=== PATIENT | female | born 1995 | race American Indian/Alaskan Native ===

== ENCOUNTER 2019-02-16 21:37 | Emergency (ER) | payer MEDICAID ==
[2019-02-16 21:53] VITALS: BP 121/86
--- NOTE | 2019-02-16 21:56 | Emergency Department Report ---
Blank Doc - Documentation Documentation: 23-year-old female that presents with female that presents with pelvic pain, n ausea and vomiting. Stated his about 12 weeks and had ultrasound in OB that was normal. Deneis any vaginal bleeding. This initial assessment/diagnostic orders/clinical plan/treatment(s) is/are subject to change based on patient's health status, clinical progression and re- assessment by fellow clinical providers in the ED. Further treatment and workup at subsequent clinical providers discretion. Patient/guardians urged not to elope from the ED as their condition may be serious if not clinically assessed and managed. Initial orders include: 1- Patient sent to [facility] for further evaluation and treatment 2- labs 3- UA
[2019-02-16 22:41] LABS: Basophils % (Auto) 0.7 % (0.0-1.8); Eosinophils # (Auto) 0.1 K/mm3 (0.0-0.4); Eosinophils % (Auto) 1.8 % (0.0-4.3); Hematocrit 37.4 % (30.3-42.9); Hemoglobin 11.9 gm/dl (10.1-14.3); Lymphocytes # (Auto) 2.3 K/mm3 (1.2-5.4); Lymphocytes % (Auto) 34.4 % (13.4-35.0); Mean Corpuscular HGB Conc 32 % (30-34); Mean Corpuscular Volume 74 fl (79-97); Monocytes # (Auto) 0.7 K/mm3 (0.0-0.8); Monocytes % (Auto) 11.1 % (0.0-7.3); Platelet Count 372 K/mm3 (140-440); Red Blood Count 5.09 M/mm3 (3.65-5.03); Red Cell Distribution Width 18.9 % (13.2-15.2)
[2019-02-16 22:46] LABS: BUN/Creatinine Ratio 10; Blood Urea Nitrogen 6 mg/dL (7-17); Calcium 8.8 mg/dL (8.4-10.2); Hemolysis Index 12
[2019-02-16 22:53] LABS: Amorphous Crystals,Urine 1+; Bilirubin,Urine NEG (Negative); Blood,Urine NEG (Negative); Color,Urine Yellow (Yellow); Mucus,Urine FEW /HPF
--- NOTE | 2019-02-16 23:35 | Ultrasound Report ---
ULTRASOUND OBSTETRIC Indication: pelvic pain Findings: There is a single, living intrauterine . [place]-rump length = 5.8 cm = 12 weeks, 2 day(s). heart rate is 160 beats per minute. The ovaries are normal. There is no free fluid. Impression: Single, living intrauterine with estimated sonographic age of 12 weeks, 2 day(s). Signer Name: Tj David MD Signed: 02/16/2019 11:31 PM Workstation Name: [id number]
[2019-02-17] MEDS ORDERED: ONDANSETRON 4 MG ODT TAB PO ONE (00:26)
[2019-02-17] MEDS ORDERED: ALUM-MAG HYDROXIDE-SIMETHICONE 200-200-20MG/5ML ORAL LIQD 30 ML PO ONE (00:26)
--- NOTE | 2019-02-17 01:20 | Emergency Department Report ---
ED Abdominal Pain HPI - General Chief Complaint: Abdominal Pain Stated Complaint: ABDOMINAL PAIN/HEADACHE Time Seen by Provider: 02/16/19 21:54 Source: patient Mode of arrival: Ambulatory Limitations: No Limitations - History of Present Illness Initial Comments: Patient is a 23-year-old -[place] female A0 who presents for normal cramping 1 week, there is no fevers no chills no vaginal bleeding,states am nausea without vomiting , pt does endorse urinary urgency and frequency. pt denies concern for STI , states she is not sexually active. Pt blood type is A pos. MD Complaint: abdominal pain Onset/Timin -: week(s) Location: LLQ, RLQ Radiation: LLQ, RLQ Migration to: no migration Severity: moderate Severity scale (0 -10): 3 Quality: cramping Consistency: intermittent Improves With: nothing Worsens With: nothing Associated Symptoms: nausea, dysuria. denies: vomiting, fever, chills, hematemesis, hematochezia, melena, hematuria, anorexia, syncope - Related Data LMP (females 10-50): Previous Rx's Medication Instructions Recorded Last Taken Type Ondansetron [Zofran Odt] 4 mg PO Q8HR PRN #10 tab.rapdis 01/13/19 Unknown Rx Acetaminophen [Acetaminophen TAB] 650 mg PO Q6HR PRN #30 tablet 02/17/19 Unknown Rx Nitrofurantoin [place]/M-Cryst 100 mg PO Q12HR 7 Days #14 capsule 02/17/19 Unknown Rx [Macrobid CAP] Ondansetron [Zofran Odt] 4 mg PO Q8HR PRN #12 tab.rapdis 02/17/19 Unknown Rx Allergies Allergy/AdvReac Type Severity Reaction Status Date / Time No Known Allergies Allergy Unverified 10/14/15 10:51 ED Review of Systems ROS: Stated complaint: ABDOMINAL PAIN/HEADACHE Other details as noted in HPI Constitutional: denies: chills, fever Eyes: denies: eye pain, eye discharge, vision change ENT: denies: ear pain, throat pain Respiratory: denies: cough, shortness of breath, wheezing Cardiovascular: denies: chest pain, palpitations Endocrine: no symptoms reported Gastrointestinal: nausea. denies: abdominal pain, vomiting, diarrhea, constipation, melena Genitourinary: denies: urgency, dysuria, discharge Musculoskeletal: denies: back pain, joint swelling, arthralgia Skin: denies: rash, lesions Neurological: denies: headache, weakness, paresthesias Psychiatric: denies: anxiety, depression Hematological/Lymphatic: denies: easy bleeding, easy bruising ED Past Medical Hx - Past Medical History Previous Medical History?: No - Surgical History Past Surgical History?: No - Social History Smoking Status: Never Smoker Substance Use Type: None - Medications Home Medications: Home Medications Medication Instructions Recorded Confirmed Last Taken Type Ondansetron [Zofran Odt] 4 mg PO Q8HR PRN #10 tab.rapdis 01/13/19 Unknown Rx Acetaminophen [Acetaminophen TAB] 650 mg PO Q6HR PRN #30 tablet 02/17/19 Unknown Rx Nitrofurantoin [place]/M-Cryst 100 mg PO Q12HR 7 Days #14 capsule 02/17/19 Unknown Rx [Macrobid CAP] Ondansetron [Zofran Odt] 4 mg PO Q8HR PRN #12 tab.rapdis 02/17/19 Unknown Rx ED Physical Exam - General Limitations: No Limitations General appearance: alert, in no apparent distress - Head Head exam: Present: atraumatic, normocephalic - Eye Eye exam: Present: normal appearance, PERRL, EOMI Pupils: Present: normal accommodation - ENT ENT exam: Present: mucous membranes moist - Neck Neck exam: Present: normal inspection, full ROM - Respiratory Respiratory exam: Present: normal lung sounds bilaterally. Absent: respiratory distress, wheezes, stridor, chest wall tenderness - Cardiovascular Cardiovascular Exam: Present: regular rate, normal rhythm, normal heart sounds. Absent: systolic murmur, diastolic murmur, rubs, gallop - GI/Abdominal GI/Abdominal exam: Present: soft, tenderness (RLQ, LLQ ), normal bowel sounds. Absent: distended, guarding, rebound, rigid, bruit, hernia - Rectal Rectal exam: Present: deferred - External exam: Present: other (deferred by patient ) - Extremities Exam Extremities exam: Present: normal inspection, full ROM, normal capillary refill. Absent: tenderness, pedal edema, joint swelling - Back Exam Back exam: Present: normal inspection, full ROM. Absent: tenderness, CVA tenderness (R), CVA tenderness (L), muscle spasm, vertebral tenderness, rash noted - Neurological Exam Neurological exam: Present: alert, oriented X3, CN II-XII intact, normal gait - Psychiatric Psychiatric exam: Present: normal affect, normal mood - Skin Skin exam: Present: warm, dry, intact, normal color. Absent: rash ED Course Vital Signs 02/16/19 02/16/19 21:40 21:54 Temperature 98.7 F 98.7 F Pulse Rate 82 82 Respiratory 18 18 Rate Blood Pressure 121/86 121/86 O2 Sat by Pulse 100 100 Oximetry ED Medical Decision Making - Lab Data Result diagrams: 02/16/19 22:08 02/16/19 22:14 Labs 02/16/19 02/16/19 02/16/19 22:08 22:13 22:14 WBC 6.7 RBC 5.09 H Hgb 11.9 Hct 37.4 MCV 74 L MCH 23 L MCHC 32 RDW 18.9 H Plt Count 372 Lymph % (Auto) 34.4 [place] % (Auto) 11.1 H Eos % (Auto) 1.8 Baso % (Auto) 0.7 Lymph # 2.3 [place] # 0.7 Eos # 0.1 Baso # 0.0 Seg Neutrophils % 52.0 Seg Neutrophils # 3.5 Sodium 134 L Potassium 3.9 Chloride 100.5 Carbon Dioxide 21 L Anion Gap 16 BUN 6 L Creatinine 0.6 L Estimated GFR > 60 BUN/Creatinine Ratio 10 Glucose 84 Calcium 8.8 HCG, Quant 08954 H Urine Color Urine Turbidity Urine pH Ur Specific [place] Urine Protein Urine Glucose (UA) Urine Ketones Urine Blood Urine Nitrite Urine Bilirubin Urine Urobilinogen Ur Leukocyte Esterase Urine WBC (Auto) Urine RBC (Auto) Amorphous Crystals Urine Mucus 02/16/19 Unknown WBC RBC Hgb Hct MCV MCH MCHC RDW Plt Count Lymph % (Auto) [place] % (Auto) Eos % (Auto) Baso % (Auto) Lymph # [place] # Eos # Baso # Seg Neutrophils % Seg Neutrophils # Sodium Potassium Chloride Carbon Dioxide Anion Gap BUN Creatinine Estimated GFR BUN/Creatinine Ratio Glucose Calcium HCG, Quant Urine Color Yellow Urine Turbidity Turbid Urine pH 8.0 H Ur Specific [place] 1.024 Urine Protein 30 mg/dl Urine Glucose (UA) Neg Urine Ketones Neg Urine Blood Neg Urine Nitrite Neg Urine Bilirubin Neg Urine Urobilinogen 2.0 Ur Leukocyte Esterase Sm Urine WBC (Auto) 1.0 Urine RBC (Auto) 9.0 Amorphous Crystals 1+ Urine Mucus Few - Radiology Data Radiology results: report reviewed, image reviewed Ordering Physician: TIFFANY MARTINEZ NP Date of Service: 02/16/19 Procedure(s): US OB <= 14 weeks fetus Accession Number(s): [id number] cc: TIFFANY MARTINEZ NP ULTRASOUND OBSTETRIC Indication: pelvic pain Findings: There is a single, living intrauterine . [place]-rump length = 5.8 cm = 12 weeks, 2 day(s). heart rate is 160 beats per minute. The ovaries are normal. There is no free fluid. Impression: Single, living intrauterine with estimated sonographic age of 12 weeks, 2 day(s). Signer Name: Tj David MD Signed: 02/16/2019 11:31 PM Workstation Name: [id number] Transcribed By: LEANDRA Dictated By: Tj David MD Electronically Authenticated By: Tj David MD Signed Date/Time: 02/16/192330 DD/ 28 TD/TT: - Medical Decision Making US: Single IUP Living, 12 weeks and 2 days, FHR 160 bpm, hc, there is no vaginal bleeding, Ua: pos for Leuk, rbc,bacteria, will tx for UTI, abd pain is improved ,pt is tolerating po intake without n/v , pt deferrs vaginal exam to OBGYN follow up. Pt will follow up with [facility] in 2 days as scheduled, will return to ed if syptoms worsen, pt dc'd to home via pov and family member in stable condition at this time. Critical care attestation.: If time is entered above; I have spent that time in minutes in the direct care of this critically ill patient, excluding procedure time. ED Disposition Clinical Impression: Threatened miscarriage in early Abdominal pain during Qualifiers: Trimester: second trimester Qualified Code(s): O26.892 - Other specified related conditions, second trimester; R10.9 - Unspecified abdominal pain UTI (urinary tract infection) during Qualifiers: Trimester: second trimester Qualified Code(s): O23.42 - Unspecified infection of urinary tract in , second trimester Disposition: DC-01 TO HOME OR SELFCARE Is pt being admited?: No Does the pt Need Aspirin: No Condition: Stable Instructions: Abdominal Pain (ED), Abdominal Pain in (ED), Urinary Tract Infection in Women (ED), Threatened Miscarriage (ED), Morning Sickness (ED) Prescriptions: Acetaminophen [Acetaminophen TAB] 650 mg PO Q6HR PRN #30 tablet PRN Reason: Pain Nitrofurantoin [place]/M-Cryst [Macrobid CAP] 100 mg PO Q12HR 7 Days #14 capsule Ondansetron [Zofran Odt] 4 mg PO Q8HR PRN #12 tab.rapdis PRN Reason: Nausea Referrals: [facility] [Provider Group] - 3-5 Days Forms: Work/School Release Form(ED) Time of Disposition: 01:35
== END 2019-02-17 01:40 | disposition home or self-care (01) ==
LOC: ED 21:37
DX: O20.0 Threatened abortion (principal); O23.42 Unspecified infection of urinary tract in pregnancy, second trimester; Z3A.01 Less than 8 weeks gestation of pregnancy
CPT/HCPCS: 36415; 76801; 80048; 81001; 84702; 85025; Q0162